=== PATIENT | female | born 1990 ===

== ENCOUNTER 2016-11-14 23:19 | Emergency (ER) | payer MEDICAID ==
[~2016-11-14] VITALS: Ht 152.4 cm; Wt 53.6 kg
[~2016-11-14 23:19] MED LIST: AMT25T PO; GABA-502 PO; LORA-302 PO; METO50TA3 PO; OXYC-530 PO; PANT40TA3 PO; SLO64 PO
[2016-11-14 23:31] VITALS: BP 141/97; PULSE 99; RESP 16; O2SAT 100
--- NOTE | 2016-11-15 00:09 | ED.REPORT ---
HPI-Rash / Abscess Date of Service Nov 15, 2016 ED Provider: Harshal Larsen DO Pt is a 26 year old female with a history of rheumatoid arthritis and HTN who presents to the Ed complaining of left hand swelling onset 2 days ago. She c/o associated left hand pain, and reports that her pain radiates up her left arm. She denies itching and any other symptoms. Pt denies recent blood clot or IV in her left arm. Per pt, she is no longer drinking. Nursing Notes Stated Complaint: LEFT HAND SWELLING Chief Complaint: General Complaint Nursing Notes Reviewed: Yes Allergies: Coded Allergies: No Known Allergies (Unverified , 03/08/15) Scheduled Amitriptyline (Amitriptyline) 25 Mg Tab 25 MG PO HS Gabapentin (Gabapentin) 300 Mg Capsule 300 MG PO TID Magnesium Chloride (Slow-Mag) 64 Mg Tablet 64 MG PO DAILY Metoprolol Tartrate (Metoprolol Tartrate) 50 Mg Tablet 50 MG PO BID Pantoprazole DR (Pantoprazole DR) 40 Mg Tablet 40 MG PO DAILYAC Scheduled PRN Lorazepam (Ativan) 0.5 Mg Tablet 0.5 MG PO BID PRN PRN For Anxiety or Agitation oxyCODONE (oxyCODONE) 5 Mg Tablet 5 MG PO Q4 PRN PRN For Moderate Pain General Time Seen by MD: 00:08 Chief Complaint Tender/swollen area Hx Obtained From: Patient Arrived By: Walk-in Onset Occurred: 2 days ago Symptom Duration: Since onset Location: : Hand Quality: Painful Severity: Current: Moderate Severity: Maximum: Moderate Recent Healthcare: No recent doctor visit, No recent hospitalization Similar Sx Previous: No Past Medical History Past Medical History Notes: Admitted 05/31-06/19/2014 for necrotizing pancreatits, ETOH withdrawal/delerium tremens , sepsis - required intubation x 8 days Multiple ETOH related ED visits Past Medical History Seizure with head injury with ICH in July 2013 Rheumatiod arthritis (previously on immune agents, not recently on meds) Alcoholism - severe withdrawal May 2014, Anxiety Pacreatitis Reports: Hypertension Reports: Depression Past Surgical History Denies Family History Mother recently from OD on alcohol and pills HTN Smoking History Never Smoker Social History Alcohol Use: Denies alcohol use Drug Use: Denies drug use Other Social History: Poor social support, Frequent ED visitor, Lives with children (daughter), Local resident Ambulatory Status Independent Review of Systems + hand pain + hand swelling Musculoskeletal: Reports: Extremity pain Skin: Denies Itching Complete sys rev & neg: except as marked. Physical Exam Initial Vital Signs Vital Signs (First) Date Time Temp Pulse Resp B/P Pulse Ox O2 Delivery O2 Flow Rate FiO2 11/14/16 23:31 37.2 99 16 141/97 100 Room Air Initial VS: Reviewed Head / Eyes: Atraumatic, Normocephalic Neck: Supple, Full range of motion Respiratory: Breath sounds normal, Clear to auscultation, No respiratory distress Cardiovascular: Regular rate & rhythm, Heart sounds normal, Intact distal pulses Abdomen / GI: Soft, Non-tender Extremities: Vascular intact, Neuro intact Neurologic: Alert, Oriented, Nonfocal Psychiatric: Mood/affect normal, Behavior normal General/Constitutional: Awake, Alert Skin: Atraumatic, Warm, Dry, Intact Wrist / Hand: Non-tender, Neurologic intact, Vascular intact Soft tissue swelling on the dorsum of her left hand with erythema and lymphatic streaking. No abscess, pain, tenderness or signs of DVT. Strong radial pulses. Interpretation & Diagnostics Lab Results Interpretation Result Diagram: 11/15/16 0035 11/15/16 0035 Test 11/15/16 00:35 White Blood Count 8.5th/mm3 (3.8-10.1) Red Blood Count 3.99mil/mm3 (3.90-5.20) Hemoglobin 11.3g/dL (12.0-15.6) Hematocrit 33.1% (35.0-46.0) Mean Corpuscular Volume 83.0fL (81-100) Mean Corpuscular Hemoglobin 28.3pg (27.0-35.0) Mean Corpuscular Hemoglobin Concent 34.1% (32.0-37.0) Red Cell Distribution Width 13.3% (12.3-15.4) Platelet Count 614bil/L (150-400) Neutrophils (%) (Auto) 68.1% (40-74) Lymphocytes (%) (Auto) 22.7% (14-46) Monocytes (%) (Auto) 6.7% (4-12) Eosinophils (%) (Auto) 1.9% (0-5) Basophils (%) (Auto) 0.4% (0-3) Sodium Level 135mEq/L (134-144) Potassium Level 4.4mEq/L (3.5-5.2) Chloride Level 99mEq/L (97-108) Carbon Dioxide Level 23mmol/L (18-29) Blood Urea Nitrogen 19mg/dL (6-20) Creatinine 0.49mg/dL (0.57-1.00) Estimat Glomerular Filtration Rate 217mL/min (>59) Glucose Level 132mg/dL (60-99) Calcium Level 9.3mg/dL (8.5-10.1) Total Bilirubin 0.2mg/dL (0.0-1.2) Aspartate Amino Transf (AST/SGOT) 14U/L (0-50) Alanine Aminotransferase (ALT/SGPT) 6U/L (0-32) Alkaline Phosphatase 92U/L (25-150) C-Reactive Protein 2.3mg/dL (0.0-0.5) Total Protein 7.5g/dL (6.4-8.4) Albumin 4.2g/dL (3.4-5.0) Re-Eval/Medical Decision Med Decision/Clinical Course No signs of DVT, sepsis or acute arterial insufficiency. She has cellulitis seems to be starting from the base of left fifth digit that extends up the dorsal aspect of her hand with lymphangitic streaking. No signs of an abscess. No point bony tenderness. X-rays felt to be not indicated. IV clindamycin infused. Short course of opiates provided for pain. Her wrist is immobilized. She will be a five day course of clindamycin. Follow-up in 48-72 hours. Source of Hx: Old records Re-Evaluation/Progress : Time of Eval: 00:19 Re-Evaluation/Progress Note: Informed pt of plan for treatment and discharge. Pt understands and agrees with plan for treatment and discharge. F/U instructions and RTER warnings given. All questions addressed. Counseled Regarding: Diagnosis, Need for follow-up, When/why to return to ED Discharge & Departure Impression: Primary Impression: Cellulitis of left hand Additional Impression: Lymphangitis Disposition: Home Discharge Condition All VS Reviewed: Yes Condition: Stable Patient Instructions: Cellulitis (ED), Lymphangitis (ED) Additional Instructions: Keep your hand elevated and immobilized. Have it rechecked in 48-72 hours by Urgent care or your primary care provider. Take Clindamycin 4x daily for 5 days. Take 1-2 Percocet every 6 hours as needed. Do not drive or drink alcohol or consume acetaminophen while taking Percocet. Return to the Emergency Department for any new or worrisome symptoms. Referrals: Jordan Conway DO (PCP) [facility] Attestation Portions of this note were transcribed by Cary Acevedo. I, Dr. Larsen personally performed the history, physical exam and medical decision-making; I reviewed and confirmed the accuracy of the information in the transcribed note. Signed by : Sona River, 11/14/16. copies to: Jordan Conway Todd P DO Nov 15, 2016 00:09 Cary Berry Nov 15, 2016 00:22
[2016-11-15] MEDS ORDERED: _oxyCODONE/APAP 5-325 mg Tablet PO PRN (00:15)
[2016-11-15] MEDS ORDERED: Clindamycin Inj 600 MG in IV Premix 1 EACH IV ONE (00:15)
[2016-11-15] MEDS ORDERED: Sodium Chloride LOK Flush 10 mL Syringe IVFLUSH SCH (00:30)
[2016-11-15 00:49] LABS: BASOPHILS % (AUTO) 0.4 % (0-3); EOSINOPHILS % (AUTO) 1.9 % (0-5); MONOCYTES % (AUTO) 6.7 % (4-12); Mean Corpuscular Hemoglobin 28.3 pg (27.0-35.0); NEUTROPHILS % (AUTO) 68.1 % (40-74); Platelet Count 614 bil/L (150-400)
[2016-11-15 01:35] VITALS: BP 145/98; PULSE 69; RESP 18; O2SAT 100
== END 2016-11-15 01:36 | disposition home or self-care (01) ==
LOC: SED 23:19
DX: L03.114 Cellulitis of left upper limb (principal); I89.1 Lymphangitis; M06.9 Rheumatoid arthritis, unspecified; I10 Essential (primary) hypertension; F41.8 Other specified anxiety disorders